=== PATIENT | male | born 1990 | race African-American/Black ===

== ENCOUNTER 2021-12-12 07:49 | Emergency (ER) | payer BC, SELFPAY ==
[2021-12-12] MEDS ORDERED: Ibuprofen 200 MG TAB ONE (08:14)
[2021-12-12] MEDS ORDERED: Acetaminophen 500 MG TAB ONE (08:14)
[2021-12-12] MEDS ORDERED: Dexamethasone 10 MG/ML VIAL ONE (08:14)
== END 2021-12-12 08:32 ==
LOC: ERS 07:49
DX: U07.1 COVID-19 (principal)
CPT/HCPCS: 99283; J1100; U0003; U0005